=== PATIENT | male | born 1940 | race Caucasian/White ===

== ENCOUNTER 2021-07-02 05:09 | Inpatient (IN) | payer MEDICARE ==
[2021-07-02] MEDS ORDERED: Acetaminophen 500 MG Tab PO ONE (05:30)
[2021-07-02] MEDS: Dextrose 5%-Lactated Ringers 1,000 ML IV SCH ×2 (06:31→11:43)
[2021-07-02] MEDS ORDERED: Albuterol/Ipratropium 3.0-0.5 MG/3 ML Neb Soln NEB ONE (07:05)
[2021-07-02] MEDS ORDERED: fentaNYL 250 MCG/5 ML SDV ONE (07:15)
[2021-07-02] MEDS ORDERED: cefOXitin 2 GM in Sodium Chloride 0.9% 50 ML IV ONE (07:15)
[2021-07-02] MEDS ORDERED: Rocuronium 50 MG/5 ML Vial ONE (07:16)
[2021-07-02] MEDS ORDERED: Glycopyrrolate 0.2 MG/ML 5 ML MDV ONE (07:16)
[2021-07-02] MEDS ORDERED: Succinylcholine 200 MG/10 ML MDV ONE (07:16)
[2021-07-02] MEDS ORDERED: Neostigmine Methylsulfate 1 MG/ML 5 ML Syringe ONE (07:16)
[2021-07-02] MEDS ORDERED: Ondansetron 4 MG/2 ML SDV ONE (07:16)
[2021-07-02] MEDS ORDERED: Propofol 200 MG/20 ML SDV ONE (07:16)
[2021-07-02] MEDS ORDERED: Dexamethasone 4 MG/ML SDV ONE (07:16)
[2021-07-02] MEDS ORDERED: Ropivacaine 40 ML, dexAMETHasone 8 MG, EPINEPHrine 0.4 MG, Sodium Chloride 0.9% 37.6 ML NERVRT SCH ×4 (07:30)
[2021-07-02] MEDS ORDERED: Ketamine 50 MG in Sodium Chloride 0.9% 49.5 ML IV SCH (07:30)
[2021-07-02] MEDS ORDERED: Ketamine 500 MG/5 ML MDV IV SCH (07:30)
[2021-07-02] MEDS ORDERED: Labetalol 20 MG/4 ML Syringe ONE (08:15)
[2021-07-02] MEDS: Bupivacaine 0.5%/EPINEPHrine 1:200,000 50 ML MDV ONE ×2 (08:17→08:32)
[2021-07-02] MEDS ORDERED: hydrOXYzine HCL 100 MG/2 ML SDV IM ONE (08:54)
[2021-07-02] MEDS ORDERED: fentaNYL 100 MCG/2 ML SDV IVPUSH ONE (08:54)
[2021-07-02] MEDS ORDERED: Insulin Lispro 100 Unit/ML 3 ML KwikPen SUBCUT ONE (09:19)
[2021-07-02] MEDS ORDERED: 50% Dextrose in Water 50 ML Syringe IVPUSH PRN (09:19)
[2021-07-02] MEDS ORDERED: Glucagon,Human Recombinant 1 MG Vial IM PRN (09:19)
[2021-07-02] MEDS ORDERED: Ondansetron 4 MG/2 ML SDV IVPUSH PRN (10:12)
[2021-07-02] MEDS ORDERED: HYDROmorphone 0.5 MG/0.5 ML Syringe IVPUSH PRN (10:15)
[2021-07-02] MEDS ORDERED: HYDROmorphone 1 MG/ML Syringe IV PRN (10:16)
[2021-07-02] MEDS ORDERED: Glucose Gel 15 GM in 37.5 GM Tube PO PRN (10:20)
[2021-07-02] MEDS: Lisinopril 20 MG Tab PO SCH (11:32)
[2021-07-02] MEDS: Insulin Lispro 100 Unit/ML 3 ML KwikPen SUBCUT PRN ×3 (11:41→21:05)
[2021-07-02] MEDS ORDERED: Pantoprazole 40 MG Vial IV SCH (12:00)
[2021-07-02] MEDS ORDERED: Cyanocobalamin (Vitamin B12) 1,000 MCG/ML SDV IM ONE (12:00)
[2021-07-02] MEDS ORDERED: Lidocaine 2% Jelly 10 ML Urojet MUCMEM ONE (14:35)
[2021-07-02] MEDS ORDERED: Tamsulosin 0.4 MG Cap.ER PO ONE (14:35)
[2021-07-02] MEDS: cefOXitin 2 GM in Sodium Chloride 0.9% 50 ML IV SCH ×2 (14:41→20:42)
[2021-07-02] MEDS ORDERED: MVI, Adult with Vitamin K 10 ML, Zinc/Copper/Manganese/Selenium 1 ML, Thiamine 100 MG i... IV ONE ×4 (16:00)
[2021-07-02] MEDS: Gabapentin 100 MG Cap PO SCH ×2 (16:29→21:04)
[2021-07-02] MEDS: Acetaminophen/HYDROcodone 325-5 MG Tab PO PRN ×2 (16:33→20:46)
[2021-07-02] MEDS: metFORMIN 500 MG Tab PO SCH (17:24)
[2021-07-02] MEDS: Tamsulosin 0.4 MG Cap.ER PO SCH (20:43)
[2021-07-03] MEDS: cefOXitin 2 GM in Sodium Chloride 0.9% 50 ML IV SCH ×4 (02:26→20:58)
[2021-07-03] MEDS: Acetaminophen/HYDROcodone 325-5 MG Tab PO PRN ×3 (02:29→15:10)
[2021-07-03] MEDS: Dextrose 5%-Lactated Ringers 1,000 ML IV SCH (03:47)
[2021-07-03] MEDS: Gabapentin 100 MG Cap PO SCH ×4 (06:00→21:00)
[2021-07-03] MEDS ORDERED: Lactated Ringers 1,000 ML IV SCH (07:30)
[2021-07-03] MEDS: metFORMIN 500 MG Tab PO SCH ×2 (07:33→17:04)
[2021-07-03] MEDS: Insulin Lispro 100 Unit/ML 3 ML KwikPen SUBCUT PRN (07:34)
[2021-07-03] MEDS: Lisinopril 20 MG Tab PO SCH (08:04)
[2021-07-03] MEDS: Aspirin 325 MG Tab.EC PO SCH (08:04)
[2021-07-03] MEDS ORDERED: Non-Formulary Medication 1 Each (Aspirin [Aspirin] 325 MG Tablet) PO SCH (09:00)
[2021-07-03] MEDS ORDERED: Lisinopril 20 MG Tab PO SCH (09:00)
--- NOTE | 2021-07-03 09:24 | PN ---
DATE OF SERVICE: 07/03/2021 SUBJECTIVE: Markos had a laparoscopic cholecystectomy yesterday. Last evening, he was not able to void, so a Lubin catheter was put in. His total output was 1555 and oral intake 850. He reports his pain is controlled with oral T[place]ton. REVIEW OF SYSTEMS: The remainder of the review of systems is negative for any pertinent positives and negatives. OBJECTIVE: GENERAL: Markos Garcia is a pleasant 81-year-old male. VITAL SIGNS: TPR 94.1, 66, and 16 and blood pressure 110/55. HEENT: Negative. NECK: Supple. HEART: Regular rate and rhythm. LUNGS: Clear. ABDOMEN: Dressing is dry and intact. An abdominal binder is on. EXTREMITIES: Without edema. ASSESSMENT: Laparoscopic cholecystectomy for acute on chronic cholecystitis and cholelithiasis, date 07/02/2021, surgeon Lake Galindo MD. PLAN: 1. Discontinue Lubin catheter. 2. Discontinue D5 LR. 3. Lactated Ringer at 100 mL/hour. 4. May shower. 5. Start home medications; lisinopril 20 mg p.o. daily, aspirin 325 mg p.o. daily, and gabapentin 100 mg p.o. q.i.d. He has metformin 500 mg p.o. b.i.d. already ordered. 6. We will evaluate p.r.n. or in the a.m. Vida Cisneros PA-C /[id number]
[2021-07-03] MEDS ORDERED: Gabapentin 100 MG Cap PO SCH (10:00)
[2021-07-03] MEDS: Pantoprazole 40 MG Tab.CR PO SCH (11:16)
[2021-07-03] MEDS: traMADol 50 MG Tab PO PRN (18:03)
[2021-07-03] MEDS: Acetaminophen 325 MG Tab PO PRN (18:03)
[2021-07-03] MEDS: Tamsulosin 0.4 MG Cap.ER PO SCH (20:58)
[2021-07-04] MEDS: cefOXitin 2 GM in Sodium Chloride 0.9% 50 ML IV SCH (02:21)
[2021-07-04] MEDS: traMADol 50 MG Tab PO PRN ×2 (02:23→08:05)
[2021-07-04] MEDS: Gabapentin 100 MG Cap PO SCH ×2 (06:04→09:38)
[2021-07-04] MEDS: Pantoprazole 40 MG Tab.CR PO SCH (07:49)
[2021-07-04] MEDS: metFORMIN 500 MG Tab PO SCH (07:49)
[2021-07-04] MEDS: Magnesium Hydroxide 400 MG/5 ML Susp 30 ML Cup PO ONE ×2 (07:53→09:30)
[2021-07-04] MEDS: Aspirin 325 MG Tab.EC PO SCH (08:02)
[2021-07-04] MEDS: Acetaminophen 325 MG Tab PO PRN (08:04)
[2021-07-04] MEDS: Lisinopril 20 MG Tab PO SCH (08:04)
--- NOTE | 2021-07-04 12:46 | DISCH ---
ADMISSION DIAGNOSES: Chronic cholecystitis, SP Ivan-en-Y gastric bypass surgery, hypertension, diabetes mellitus, osteopenia, chronic low back pain, cognitive impairment, restless legs syndrome, steatohepatitis, alcohol use, centrilobular emphysema, unspecified surgical malabsorption, B12 deficiency, vitamin D deficiency. DISCHARGE DIAGNOSES: Diagnostic laparoscopy with: 1. Cholecystectomy. 2. Repair of recurrent incarcerated periumbilical incisional hernia. POSTOPERATIVE DIAGNOSES: 1. Chronic cholecystitis and cholelithiasis. 2. Recurrent incarcerated periumbilical incisional hernia. 3. Postop urinary retention. Date of procedure: 07/02/2021. Surgeon: Lake Galindo. HISTORY: Markos Garica is a pleasant 81-year-old male with chronic cholecystitis and cholelithiasis. After preoperative evaluation and discussion of possible risks and possible complications, he wished to proceed with surgical procedure. HOSPITAL COURSE: Markos had his surgery on 07/02/2021. He had no operative complications with the exception of postop urinary retention. A Lubin catheter had to be placed and then he had it removed the next morning. He was able to urinate later in the morning. He has been up ambulating. Pain has been controlled with tramadol. He is passing flatus, but has not had a bowel movement. Markos was able to be discharged to home on 07/04/2021. PHYSICAL EXAMINATION: GENERAL: Markos Garcia is a pleasant 81-year-old male. VITAL SIGNS: Height is 6 feet 3 inches, weight is 173 pounds, BMI 21. TPR; 95.1, 65, 16. Blood pressure 114/58. HEENT: Negative. NECK: Supple. HEART: Regular rate and rhythm. LUNGS: Clear. ABDOMEN: Dressings dry and intact. Abdominal binder is on. EXTREMITIES: Without peripheral edema. DISPOSITION: Discharged to home. CONDITION: Stable and improving. HOME MEDICATION: Tramadol 50 mg p.o. q.6 hours p.r.n. pain, #12; two doses of milk of magnesia were sent home with the patient. To resume all home medications. FOLLOWUP APPOINTMENT: Vida Cisneros PA-C, 07/12/2021 at 11 a.m. DIET: Usual diet as tolerated. Drink 8 to 10 glasses of water a day. ACTIVITY: No lifting greater than 10 pounds for 2 weeks. OTHER ACTIVITY: Walk 6 times daily inside your home. Driving: Do not drive for 1 week or while on the tramadol medication. Shower/bathing: May shower. Keep operative site clean and dry. Wear abdominal binder for 2 weeks and as tolerated. Notify provider if any fever, increased pain, swelling, redness, drainage, nausea, or vomiting. SPECIAL INSTRUCTIONS: Use incentive spirometer 10 times every hour while awake for 1 week. /[id number]
--- NOTE | 2021-07-09 15:13 | OR ---
DATE OF PROCEDURE: 07/02/2021 SURGEON: Lake Galindo MD PREOPERATIVE DIAGNOSIS: Chronic cholecystitis and cholelithiasis. POSTOPERATIVE DIAGNOSES: 1. Chronic cholecystitis and cholelithiasis. 2. Recurrent incarcerated incisional hernia. PROCEDURE PERFORMED: Diagnostic laparoscopy with: 1. Cholecystectomy (57168). 2. Repair of recurrent incarcerated incisional hernia (18819). ANESTHESIA: General. BOILER COVERER: Vida Cisneros PA-C INDICATIONS FOR PROCEDURE: This is an 81-year-old male presenting with a picture of chronic cholecystitis and cholelithiasis. He has gallstones on ultrasound and also had a HIDA scan which showed an ejection fraction of 9%. The plan is to proceed with laparoscopic or, if necessary, open cholecystectomy. Potential risks including bleeding, infection, injury to underlying viscera, problems with stones migrating into the common bile duct requiring additional procedures for correction were all reviewed, and the patient wishes to proceed. DETAILS OF PROCEDURE: The patient was taken to the operating room and placed supine. General endotracheal anesthesia was induced. The abdomen was prepped and draped. A transverse epigastric incision was made and the peritoneal cavity entered under direct vision with an Optiview trocar and inflated to 15 mmHg pressure with CO2. The laparoscope was reinserted. No underlying trocar insertion site injuries were seen. Following this, the scope was focused on the area of the periumbilical area. The patient was noted to have some omental adhesions in that area, and a 5 mm trocar was then placed in the right subcostal area. The visualized adhesions were then taken down with Harmonic scalpel. The patient had some mesh placed in the periumbilical area, and somewhat inferior to this, there was a recurrent hernia present. A transverse incision was made in the skin above that, and the subumbilical trocar was then placed through the area of hernia to allow subsequent repair of that. The gallbladder was then retracted anteriorly and laterally, and dissection began on the gallbladder neck and continued around the gallbladder neck and cystic duct junction. Once that area was well delineated along with the adjacent cystic artery, both structures were taken with a EDEN stapler and the gallbladder was dissected off the gallbladder bed using Harmonic scalpel and delivered from the epigastric trocar site. At this point, the camera was brought back up to the epigastric site, and the trocar in the subumbilical area was removed. The hernia was repaired with placement of laparoscopic suture passer, placed 0 Vicryl sutures. These were oriented in a transverse orientation, and at that point, no further problems were noted. A drain was not felt to be necessary. The remaining trocars were removed and the peritoneal cavity deflated. The fascia at the epigastric site was closed with 0 Vicryl stitch, and the skin at each incisions was closed with 4-0 Vicryl skin stitch. Prior to closure, bilateral transversus abdominis plane blocks were placed, and the patient was taken to the recovery room in satisfactory condition. There were no evident complications. Lake Galindo MD /[id number]
== END 2021-07-04 11:00 | disposition home or self-care (01) | DRG 418 ==
LOC: JP.SDS 05:09 → JP.MS 09:48 → JP.SDS 07-03 10:37 → JP.MS 07-03 10:37
PROVIDERS: ADMIT Surgery; ATTEND Surgery
PROC: 0FT44ZZ Resection of Gallbladder, Percutaneous Endoscopic Approach (ICD-10-PCS; principal; 2021-07-02)
PROC: 0WQF4ZZ Repair Abdominal Wall, Percutaneous Endoscopic Approach (ICD-10-PCS; 2021-07-02)
DX: K80.10 Calculus of gallbladder with chronic cholecystitis without obstruction (principal); K43.0 Incisional hernia with obstruction, without gangrene; R33.9 Retention of urine, unspecified; I10 Essential (primary) hypertension; E11.42 Type 2 diabetes mellitus with diabetic polyneuropathy; F17.210 Nicotine dependence, cigarettes, uncomplicated; I08.0 Rheumatic disorders of both mitral and aortic valves; M54.5 Low back pain; G89.29 Other chronic pain; E55.9 Vitamin D deficiency, unspecified; G25.81 Restless legs syndrome; M81.0 Age-related osteoporosis without current pathological fracture; M19.90 Unspecified osteoarthritis, unspecified site; Z98.84 Bariatric surgery status; Z88.8 Allergy status to other drugs, medicaments and biological substances; Z79.899 Other long term (current) drug therapy
CPT/HCPCS: 36415; 51702; 51798; 82247; 82947; 84075; 85025; 94640; A9270-GY; C9113; J0171; J0330; J0694; J1100; J1170; J1815; J2405; J2704; J2710; J2795; J3010; J3410; J3411; J3420; J3490; J7120; J7121; J7620-GY